=== PATIENT | male | born 1990 | race Caucasian/White ===

== ENCOUNTER 2021-01-07 12:50 | Emergency (ER) | payer OTHER, SELFPAY ==
[2021-01-07 13:03] VITALS: BP 153/89; PULSE 85; RESP 16; TEMP 36.2; O2SAT 99
--- NOTE | 2021-01-07 13:56 | ED.GENADULT ---
HPI - General Adult General Chief complaint: Unspecified Stated complaint: sore throat 4 days Time Seen by Provider: 01/07/21 13:53 History of Present Illness HPI narrative: Patient is a 30-year-old male otherwise healthy who comes into the ED today complaining of throat irritation. No pain with swallowing. No voice changes. More so has pain with certain movements. For the last 2 days he has been having body aches and feeling fatigued and somewhat nauseous. No vomiting. No sinus congestion, cough. No one else in his household is feeling ill. Took some ibuprofen this morning. Related Data Allergies Allergy/AdvReac Type Severity Reaction Status Date / Time No Known Allergies Allergy Unknown Verified 01/07/21 13:07 Review of Systems Constitutional: Constitutional: Reports as per HPI, Denies fever(s), Denies night sweats and Denies weakness ENT: Comments: See HPI Cardiovascular: Cardiovascular: Denies chest pain, Denies edema, Denies leg edema, Denies dyspnea and Denies orthopnea Respiratory: Respiratory: Denies cough and Denies dyspnea Gastrointestinal: Gastrointestinal: Denies abdominal pain, Denies constipation, Denies diarrhea, Denies nausea and Denies vomiting Musculoskeletal: Musculoskeletal: Denies abnormal gait, Denies back pain, Denies numbness and Denies tingling Neurologic: Denies Abnormal speech present, Denies abnormal gait, Denies numbness, Denies tingling and Denies weakness Psychiatric: Psychiatric: Denies homicidal ideation and Denies suicidal ideation [facility] Social History Social History (Updated 09/25/19 @ 11:03 by Cheryl Aguilar) Smoking status: Never smoker Gender identity (if verbalized by the patient): Male Exam Const: General: cooperative, healthy appearing, comfortable, no acute distress, well developed, alert, awake and Physically active Orientation/consciousness: patient oriented x3 Other: Well-appearing, pleasant, no distress HENMT: Head: normal to inspection, normocephalic and atraumatic Ears: external ears normal General nose exam: Normal external nose present Mouth: Yes Normal oral and palatal mucosa present Teeth and gingiva: dentition normal and gingiva normal Throat: posterior oropharynx normal, tonsils normal and uvula midline Other: Oropharynx is completely normal. No cervical adenopathy. Eyes: Pupils: Equal, round and reactive pupils present EOM: EOMs intact bilaterally Neck: Neck: normal visual inspection Chest: Chest palpation & inspection: normal inspection of the chest and no tenderness Resp: Effort & Inspection: normal respiratory effort and able to speak in complete sentences Auscultation: clear to auscultation bilaterally Cardio: Rate: regular rate Rhythm: regular rhythm GI: Inspection: normal to inspection GI Palp: No abdominal tenderness : General: Yes no CVA tenderness Back/Spine/Pelvis: Back: no CVA tenderness Skin: General skin exam: normal color and no rashes or lesions noted Lesions: no lesions Neuro: General: patient oriented x3, no focal motor deficits and CN's II-XI intact bilaterally Cranial nerves: Yes Equal, round and reactive pupils present Speech: No Abnormal speech present Extrem: General: normal to inspection and full ROM Psych: Appearance: grossly normal and well kempt Mental Status: mental status grossly normal Speech and movement: Normal speech and movement present Affect: normal affect Thought process: Normal thought process present Course Course Emergency Course: Discussed with patient that symptoms are viral in nature. Educated on plan for rest and Tylenol and ibuprofen as needed and return to ED with any new or worsening symptoms. Will swab for the COVID-19 virus. Vital Signs Vital signs: Vital Signs Temperature 36.2 C L 01/07/21 13:03 Pulse Rate 85 01/07/21 13:03 Respiratory Rate 16 01/07/21 13:03 Blood Pressure 153/89 H 01/07/21 13:03 Pulse Oximetry 99 01/07/21 13:03 Temperature 36.2 C L
[2021-01-07 15:18] VITALS: BP 133/75; PULSE 72; RESP 18; O2SAT 99
[2021-01-07 21:23] LABS: SARS-CoV-2 RNA PCR Negative
== END 2021-01-07 15:18 | disposition home or self-care (01) ==
PROVIDERS: Physician Assistant Medical; Emergency Provider Emergency Medicine
DX: B34.9 Viral infection, unspecified (principal); J02.9 Acute pharyngitis, unspecified; Z20.822 Contact with and (suspected) exposure to COVID-19
CPT/HCPCS: 87081; 87426; 87880; 99283; C9803; U0003; U0005

== ENCOUNTER 2021-06-23 15:31 | Emergency (ER) | payer OTHER, SELFPAY ==
[2021-06-23 15:41] VITALS: BP 122/65; PULSE 63; RESP 16; TEMP 37; O2SAT 100
[2021-06-23 17:29] VITALS: BP 119/60; PULSE 70; RESP 18; O2SAT 100
--- NOTE | 2021-06-23 17:46 | ED.GENADULT ---
HPI - General Adult General Chief complaint: Urogenital-Male Stated complaint: Chaffing groin area Time Seen by Provider: 06/23/21 17:31 Source: patient Mode of arrival: ambulatory Limitations: no limitations History of Present Illness HPI narrative: Patient presents for evaluation of redness and a burning sensation to his scrotum and left inguinal region. He states he used a new aponte product on his scrotum about a month ago and has experienced redness and burning to the scrotum since that time. Yesterday he noted some red dots to the left inguinal region. He is sexually active with one female partner on a regular basis, typically receiving oral intercourse. He recently had protected sexual intercourse with another female. Patient denies any urinary symptoms or urethral discharge. He was concerned that these red dots might be herpes. This prompted him to come to the ER for further evaluation. Denies any testicular pain, masses, enlargement. No additional complaints or concerns. Related Data Allergies Allergy/AdvReac Type Severity Reaction Status Date / Time No Known Allergies Allergy Unknown Verified 06/23/21 17:31 Review of Systems Review of Systems: CONSTITUTIONAL: Denies fever, chills, or sweats. EYES: Denies visual changes, redness, or discharge. ENT: Denies rhinorrhea, congestion, sore throat, or otalgia. CARDIOVASCULAR: Denies chest pain, palpitations, or edema. RESPIRATORY: Denies cough or dyspnea. GASTROINTESTINAL: Denies abdominal pain, nausea, vomiting, or diarrhea. GENITOURINARY: Denies dysuria or hematuria. SKIN: Reports redness with a burning sensation to the scrotum left inguinal region MUSCULOSKELETAL: Denies back pain, joint pain, or myalgia. NEUROLOGIC: Denies headache, numbness, dizziness, or weakness. PSYCHIATRIC: Denies anxiety or depression. [facility] Past Medical History Medical History No pertinent past medical history Surgical History Surgical History (Updated 06/23/21 @ 17:57 by Tyron Haji, GENA, DEDRICK) No pertinent past surgical history Family History Family History Mother No pertinent past medical history Social History Social History Smoking status: Never smoker Alcohol intake: never Substance use: current Substance use type: marijuana Living arrangements: with family Gender identity (if verbalized by the patient): Male Sexual Orientation (if Verbalized by the Patient): Straight or Heterosexual Spiritual care concerns: No Exam Narrative: GENERAL: Well-appearing, well-nourished, and in no acute distress. HEAD: Normocephalic, atraumatic. EYES: PERRLA and EOMI. ENT: Nares clear, no rhinorrhea or epistaxis. Mucous membranes moist. Oropharynx without tonsillar hypertrophy exudate or other lesions. Bilateral TMs pearly rueda nonbulging NECK: Supple. No adenopathy or masses. No carotid bruits or JVD CHEST: Clear to auscultation. No respiratory distress. No wheezes rales or rhonchi HEART: Regular rate and rhythm. No murmur heard. Normal peripheral pulses. GENITAL: No penile lesions. No testicular masses, enlargement or tenderness. There is erythema noted to left side of the scrotum. There is erythema noted surrounding the hair follicles to the left inguinal region ABDOMEN: Soft, nontender, nondistended, normal active bowel sounds. EXTREMITIES: Normal range of motion. No edema. SKIN: Warm, dry, no rash. NEURO: No focal deficits. Alert and oriented x3. PSYCH: Normal mood and affect. Course Course Emergency Course: This is a 30-year-old male who presented with complaints of burning and redness to the left inguinal region and scrotum. He recently used a aponte product and experienced a chemical burn. It appears that in additional to this he now has folliculitis. This could be a bacterial o
[2021-06-23 18:27] LABS: Add Urine Microscopic? YES; Appearance Urine Clear (Clear); Bacteria Urine Trace /hpf; Bilirubin Urine Negative (Negative); Blood Urine Negative (Negative); Color Urine Straw (Yellow); Glucose Urine UA Negative (Negative); Ketones Urine Trace mg/dL (Negative); Leukocyte Esterase Ur Negative LEU/UL (Negative); Mucus Urine Rare /lpf; Nitrate Urine Negative (Negative); Protein Urine Negative (Negative); RBC Urine 0-2 /hpf (0-2); Specific Grav Ur 1.012 (1.001-1.035); Urobilinogen Urine Negative mg/dL (<2.0); WBC Urine 0-3 /hpf
== END 2021-06-23 18:12 | disposition home or self-care (01) ==
PROVIDERS: Emergency Provider Nurse Practitioner
DX: T65.891A Toxic effect of other specified substances, accidental (unintentional), initial encounter (principal); T21.46XA Corrosion of unspecified degree of male genital region, initial encounter; T32.0 Corrosions involving less than 10% of body surface; L73.9 Follicular disorder, unspecified
CPT/HCPCS: 81001; 87491; 87591; 87661; 99283

== ENCOUNTER 2022-04-28 09:19 | Emergency (ER) | payer OTHER, SELFPAY ==
--- NOTE | 2022-04-28 09:43 | ED.BACK ---
HPI - Back Pain/Injury General Chief Complaint: Back Pain/Injury Stated Complaint: back issues, neck pains Time Seen by Provider: 04/28/22 09:29 History of Present Illness HPI Narrative: 31-year-old male presents the emergency room for evaluation of gradual onset of neck pain for 3 days. Patient denies any known injury or trauma. States that he was at work over the weekend and was frequently reaching for items and then placing them over his head. States neck pain is worse with rotation to the right. Has been taking ibuprofen with little improvement of symptoms. Related Data Home Medications Medication Instructions Recorded Confirmed No Home Medications 04/28/22 04/28/22 Allergies Allergy/AdvReac Type Severity Reaction Status Date / Time No Known Allergies Allergy Unknown Verified 04/28/22 09:50 Review of Systems Review of Systems: CONSTITUTIONAL: Denies fever, chills, or sweats. EYES: Denies visual changes, redness, or discharge. ENT: Denies rhinorrhea, congestion, sore throat, or otalgia. CARDIOVASCULAR: Denies chest pain, palpitations, or edema. RESPIRATORY: Denies cough or dyspnea. GASTROINTESTINAL: Denies abdominal pain, nausea, vomiting, or diarrhea. GENITOURINARY: Denies dysuria or hematuria. SKIN: Denies rash or itching. MUSCULOSKELETAL: Reports neck pain NEUROLOGIC: Denies headache, numbness, dizziness, or weakness. PSYCHIATRIC: Denies anxiety or depression. PMFSH Past Medical History Medical History No pertinent past medical history Surgical History Surgical History No pertinent past surgical history Family History Family History Mother No pertinent past medical history Social History Social History Smoking status: Never smoker Alcohol intake: never Substance use: current Substance use type: marijuana Gender identity (if verbalized by the patient): Male Sexual Orientation (if Verbalized by the Patient): Straight or Heterosexual Spiritual care concerns: No Exam Narrative: GENERAL: Well-appearing, well-nourished, no physical limitations, and in no acute distress. HEAD: Normocephalic, atraumatic. EYES: Conjunctivae normal, PERRLA and EOMI. NECK: Supple. No midline tenderness. Full range of motion, pain with right rotation and right lateral bend, tenderness over the left trapezius muscle. CHEST: Clear to auscultation. No respiratory distress. No wheezes rales or rhonchi. No tenderness. HEART: Regular rate and rhythm. No murmur heard. Normal peripheral pulses. EXTREMITIES: Normal range of motion. No edema. No clubbing or cyanosis SKIN: Warm, dry, no rash. No noted wounds NEURO: No focal deficits. Alert and oriented x3. MAEW. CN's II-XI intact bilaterally, normal gait PSYCH: Cooperative. Normal mood and affect. Course Vital Signs Vital signs: Vital Signs Temperature 36.1 C L 04/28/22 09:46 Pulse Rate 58 L 04/28/22 09:46 Respiratory Rate 16 04/28/22 09:46 Blood Pressure 125/74 04/28/22 09:46 Pulse Oximetry 99 04/28/22 09:46 Oxygen Delivery Room Air 04/28/22 09:46 Temperature 36.1 C L 04/28/22 09:46 Pulse Rate 58 L 04/28/22 09:46 Respiratory Rate 16 04/28/22 09:46 Blood Pressure 125/74 04/28/22 09:46 Pulse Oximetry 99 04/28/22 09:46 Oxygen Delivery Room Air 04/28/22 09:46 Discharge Plan Discharge Clinical Impression: Acute cervical myofascial strain Patient Disposition: Home, Self-Care Condition: Stable Instructions: Antibiotic Form, Cervical Strain (DC) Prescriptions: No Action No Home Medications Follow-up/Referrals: PHYSICIAN,FISH GRADER [Primary Care Provider] - Time of Disposition: :46
[2022-04-28 09:46] VITALS: BP 125/74; PULSE 58; RESP 16; TEMP 36.1; O2SAT 99
== END 2022-04-28 10:57 | disposition home or self-care (01) ==
PROVIDERS: Emergency Provider Nurse Practitioner Family
DX: S16.1XXA Strain of muscle, fascia and tendon at neck level, initial encounter (principal); X58.XXXA Exposure to other specified factors, initial encounter
CPT/HCPCS: 99281

== ENCOUNTER 2023-11-18 10:46 | Emergency (ER) | payer OTHER, SELFPAY ==
--- NOTE | ~2023-11-18 | XR_ITS ---
XR chest 2V DATE: 11/18/2023 12:17 INDICATION: Left rib pain for 5 days TECHNIQUE: PA and lateral chest COMPARISON: None FINDINGS: Bilateral hyperinflation. No pulmonary infiltrate or consolidation, pleural effusion or pul monary vascular congestion or pneumothorax is detected. Included skeletal structures are unremarkable. IMPRESSION: Bilateral hyperinflation Reviewed, dictated and finalized at location B. [facility]ER IMPRESSION: Bilateral hyperinflation
[2023-11-18 11:14] VITALS: BP 136/78; PULSE 72; RESP 18; TEMP 36.3; O2SAT 100
--- NOTE | 2023-11-18 12:11 | ED.EXTPRO ---
HPI - Extremity Problem General Chief complaint: Extremity Problem,Nontraumatic Stated complaint: Blood clot in arm/rib pain Time Seen by Provider: 11/18/23 12:06 History of Present Illness HPI Narrative: Patient is a 32-year-old male with no past medical history here today with multiple complaints including left rib pain and an area of swelling in the left arm. Patient notes that about 5 days ago he was hugged by his large friend. He notes immediate pain to his left ribs afterwards. He has taken occasional ibuprofen without relief but does not typically like to take medications. Additionally yesterday he noted a small lump to his forearm and was concerned that this could be a blood clot. He notes that it is over the dorsal aspect of his forearm, small in size, with some faint overlying erythema. Patient denies any history of blood clot. Denies swelling of the arm, pain in the arm. He denies known trauma to this on. Related Data Allergies Allergy/AdvReac Type Severity Reaction Status Date / Time No Known Allergies Allergy Unknown Verified 11/18/23 12:01 Review of Systems Review of Systems: All systems reviewed & are unremarkable except as noted in HPI and below PMFSH Past Medical History Medical History No pertinent past medical history Surgical History Surgical History No pertinent past surgical history Family History Family History (Updated 12/30/22 @ 21:38 by Stephanie York MD) Mother No pertinent past medical history Father , suicide, overdose No problems noted. Social History Social History Social History: Single Smoking packs per day: 1 Smoking cigarettes per day: 20.0 Years smoked: 2 Smoking pack-years: 2.00 Smoking status: Never smoker Tobacco type: cigarettes Second hand tobacco smoke exposure: No Smoking end date: 10/03/19 Alcohol intake: never Substance use: current Substance use type: marijuana Last use: Pt smokes marijuana only when he is at home. Lack of Transportation: No Lack of Food: Never True Current Housing: I Have Housing Concerned About Future Housing: No Difficulty Paying Gas/Electric Bills: No Difficulty Paying for Meds: No Currently Unemployed: No Education: Decline to Answer Difficulty w/ Childcare or Family Care: No Living arrangements: with family Occupation/Education: occupation Gender identity (if verbalized by the patient): Male Sexual Orientation (if Verbalized by the Patient): Straight or Heterosexual Spiritual care concerns: No Exam Narrative: GENERAL: Well-appearing, well-nourished, and in no acute distress. HEAD: Normocephalic, atraumatic. EYES: PERRLA and EOMI. ENT: Nares clear. Mucous membranes moist. NECK: Supple. CHEST: Clear to auscultation. Left anterior chest wall tenderness around ribs 4-5, no crepitus appreciated. No respiratory distress. HEART: Regular rate and rhythm. Normal peripheral pulses. ABDOMEN: Soft, nontender, nondistended. EXTREMITIES: Normal range of motion. No edema. 1cm round, mobile swelling to mid forearm without any arm swelling, numbness, strength changes. SKIN: Warm, dry, no rash. NEURO: No focal deficits. Alert and oriented x3. PSYCH: Normal mood and affect. Course Course Emergency Course: Chart review performed. Patient here for arm and rib symptoms. Triage vitals normal. Last PCP visit in our system was about a year ago. No pertinent medical history at that time. Patient seen evaluated, nontoxic appearing. He does have anterior chest wall tenderness, x-ray negative for fracture. Reviewed by myself, no obvious displaced fracture appreciated on my own review either. Very small mobile round area of induration present on his left forearm, this is not consistent with a DVT. Discu
[2023-11-18] MEDS: LIDOCAINE 5% PATCH 1 PATCH TRANSDERM (13:00)
[2023-11-18] MEDS: IBUPROFEN 600 MG TABLET PO (13:01)
[2023-11-18] MEDS: ACETAMINOPHEN 325 MG TABLET 650 MG PO (13:01)
[2023-11-18 13:04] VITALS: BP 122/68; PULSE 82; RESP 16; O2SAT 99
== END 2023-11-18 13:05 | disposition home or self-care (01) ==
PROVIDERS: Emergency Provider Student in an Organized Health Care Education/Training Program
DX: R07.81 Pleurodynia (principal); F17.210 Nicotine dependence, cigarettes, uncomplicated
CPT/HCPCS: 71046; 99283; A9270

== ENCOUNTER 2024-11-20 13:11 | Emergency (ER) | payer OTHER, SELFPAY ==
--- OUTSIDE RECORDS SUMMARY | 2024-11-20 13:18 | XMS_ITS | Clinical Summary ---
Author Organization [facility] Address [address] [place] [address] Phone Care Team Providers Care Family Law Specialist Name Role Phone Provider, None Primary Care Provider Unavailabl e Allergies No known active allergies Medications naproxen (NAPROSYN) 500 MG Tablet Take 1 Tab by mouth 2 times daily (with meals). 60 Tab 0 02/11/2016 Active LORazepam (ATIVAN) 0.5 MG Tablet Take 1 Tab by mouth every 6 hours as needed for Anxiety. 20 Tab 05/12/2017 Active Social History Tobacco Use Types Packs/Day Years Used Date Smoking Tobacco: Every Day Cigarettes E-Vapor with Nicotine Alcohol Use Standard Drinks/Week Comments Yes 0 (1 standard drink = 0.6 oz pur e alcohol) OCCASIONALLY Sex and Gender Information Value Date Recorded Sex Assigned at Not on file Legal Sex Male 12:17 AM CDT Gender Identity Not on file Sexual Orientation Not on file Last Filed Vital Signs Vital Sign Reading Time Taken Comments Blood Pressure 111/76 05/12/2017 3:51 PM CDT Pulse 68 05/12/2017 3:51 PM CDT Temperature 36.3 C (97.4 F) 05/12/2017 3:51 PM CDT Respiratory Rate 16 05/12/2017 3:51 PM CDT Oxygen Saturation 99% 05/12/2017 3:51 PM CDT Inhaled Oxygen Concentration - - Weight 54.4 kg (120 lb) 05/12/2017 3:51 PM CDT Height 170.2 cm (5' 7 ) 05/12/2017 3:51 PM CDT Body Mass Index 18.79 05/12/2017 3:51 PM CDT Plan of Treatment Not on file Care Teams Family Law Specialist Relationship Specialty Start Date End Date Provider, None UNIQUE PCP - General 02/11/16
--- OUTSIDE RECORDS SUMMARY | 2024-11-20 13:18 | XMS_ITS | Referral Summary ---
Author Organization [facility] Address [address] [place] [address] Care Team Providers Care Fraternity Adviser Name Role Phone No, Physician Primary Care Provider [phone] Allergies No known active allergies Medications mupirocin (BACTROBAN) 2 % cream Apply topically 3 (three) times a day. 15 g 8 Active traMADoL (ULTRAM) 50 mg tablet Take 1 tablet (50 mg total) by mouth every 6 (six) hours for 6 days 24 tablet 4 Active Immunizations Immunization Administration Dates Next Due Tdap 08/06/2024 Social History Tobacco Use Types Packs/Day Years Used Date Smoking Tobacco: Every Day Smokeless Tobacco: Never Personal Safety Answer Date Recorded Have you ever been in or are you currently in a harmful physical or emotional relationship or is someone making you feel afraid or unsafe? Denies 08/06/2024 Sex and Gender Information Value Date Recorded Sex Assigned at Not on file Legal Sex Male 5:48 PM BIOLOGICAL ENGINEER Gender Identity Not on file Sexual Orientation Not on file Last Filed Vital Signs Vital Sign Reading Time Taken Comments Blood Pressure 113/77 08/06/2024 12:00 PM BIOLOGICAL ENGINEER Pulse 53 08/06/2024 12:00 PM BIOLOGICAL ENGINEER Temperature 36.9 C (98.4 F) 08/06/2024 8:07 AM BIOLOGICAL ENGINEER Respiratory Rate 16 08/06/2024 10:47 AM BIOLOGICAL ENGINEER Oxygen Saturation 99% 08/06/2024 10:47 AM BIOLOGICAL ENGINEER Inhaled Oxygen Concentration - - Weight 59 kg (130 lb) 05/16/2024 4:16 PM CDT Height 170.2 cm (5' 7 ) 08/06/2024 8:07 AM BIOLOGICAL ENGINEER Body Mass Index 20.36 05/16/2024 4:16 PM CDT Plan of Treatment Not on file [place] [id number] [facility] CHOICE [employer] H[facility]/PPO Address: [address] [address] [place] [address] [employer] Care Teams Fraternity Adviser Relationship Specialty Start Date End Date No, Physician PCP - General 08/06/24
--- OUTSIDE RECORDS SUMMARY | 2024-11-20 13:18 | XMS_ITS | Clinical Summary ---
Author Organization [facility] Address [address] [place] [address] Care Team Providers Care Apparel Pattern Maker Name Role Phone Unavailable Primary Care Provider Unavailabl e Source Comments [facility],non-owned Affiliates and Associated Physician Practices is amultiple site organization consisting of ambulatory clinics and hospital sitesin [place], [place], [place] and [place]. This disclosure is being madepursuant to the Care Everywhere program and may not contain all information available regarding this patient. Last updated 18.[facility] [employer] Social History Tobacco Use Types Packs/Day Years Used Date Smoking Tobacco: Never Assessed Sex and Gender Information Value Date Recorded Sex Assigned at Not on file Gender Identity Not on file Sexual Orientation Not on file Plan of Treatment Health Maintenance Due Date Last Done Comments HIV SCREENING 12/28/2006 HEPATITIS C SCREENING 12/24/2009 DTAP/TDAP/TD VACCINES (1 - Tdap) 12/28/2010 HEPATITIS B VACCINE (1 of 3 - 19+ 3-dose series) 12/28/2010 COVID-19 VACCINE ( - 2023-2 5 season) 2024 INFLUENZA VACCINE (#1) 2024 DEPRESSION SCREENING 10/03/2024 ZOSTER VACCINE (1 of 2) 12/28/2041 HIB VACCINE Aged Out No longer eligi ble based on patient's age to complete this topic HPV VACCINE Aged Out No longer eligi ble based on patient's age to complete this topic MENINGOCOCCAL (Group B) VACCINE Aged Out No longer eligible based on patient's age to complete this topic MENINGOCOCCAL VACCINE Aged Out No art kodi eligible based on patient's age to complete this topic PNEUMOCOCCAL VACCINE Aged Out No long er eligible based on patient's age to complete this topic
--- OUTSIDE RECORDS SUMMARY | 2024-11-20 13:18 | XMS_ITS | Patient Health Summary ---
Author Organization [facility] Address [address] [place] [address] Care Team Providers Care Diffusion Furnace Operator Name Role Phone Unavailable Primary Care Provider Unavailabl e Note from [facility],non-owned Affiliates and Associated Physician Practices is amultiple site organization consisting of ambulatory clinics and hospital sitesin [place], [place], [place] and [place]. This disclosure is being madepursuant to the Care Everywhere program and may not contain all information available regarding this patient. Last updated 18.[facility] Social History Tobacco Use Types Packs/Day Years Used Date Smoking Tobacco: Never Assessed Sex and Gender Information Value Date Recorded Sex Assigned at Not on file Gender Identity Not on file Sexual Orientation Not on file
--- OUTSIDE RECORDS SUMMARY | 2024-11-20 13:18 | XMS_ITS | Clinical Summary ---
Author Organization [facility] Address [address] [place] [address] Care Team Providers Care Oval Or Circular Glass Cutter Name Role Phone No, Physician Primary Care Provider [phone] Allergies No known active allergies Medications mupirocin [...] on file Legal Sex Male 5:48 PM INSTRUMENTATION AND CONTROLS DESIGNER Gender Identity Not on file Sexual Orientation Not on file Obstetrics History Last Filed Vital Signs Vital Sign Reading Time Taken Comments Blood Pressure 113/77 08/06/2024 12:00 PM INSTRUMENTATION AND CONTROLS DESIGNER Pulse 53 08/06/2024 12:00 PM INSTRUMENTATION AND CONTROLS DESIGNER Temperature 36.9 C (98.4 F) 08/06/2024 8:07 AM INSTRUMENTATION AND CONTROLS DESIGNER Respiratory Rate 16 08/06/2024 10:47 AM INSTRUMENTATION AND CONTROLS DESIGNER Oxygen Saturation 99% 08/06/2024 10:47 AM INSTRUMENTATION AND CONTROLS DESIGNER Inhaled Oxygen Concentration - - Weight 59 kg (130 lb) 05/16/2024 4:16 PM CDT Height 170.2 cm (5' 7 ) 08/06/2024 8:07 AM INSTRUMENTATION AND CONTROLS DESIGNER Body Mass Index 20.36 05/16/2024 4:16 PM CDT Plan of Treatment Health Maintenance Due Date Last Done Comments Depression Screening 1991 Hepatitis C Screening 1991 Pneumococcal vaccine <65 (1 of 2 - PCV) 12/28/1997 Varicella Vaccines (1 of 2 - 13+ 2-dose series) 12/28/2004 Regular Well Visit/Exam 18-64 12/28/2009 Influenza Vaccine (#1) 2024 DTaP/Tdap/Td Vaccine (2 - Td or Tdap) 08/06/2034 08/06/2024 HPV Vaccines Aged Out No longer eligi ble based on patient's age to complete this topic Insurance [employer] [facility] CHOICE PLUS [employer] Care Teams Oval Or Circular Glass Cutter Relationship Specialty Start Date End Date No, Physician PCP - General 08/06/24
--- OUTSIDE RECORDS SUMMARY | 2024-11-20 13:18 | XMS_ITS | Continuity of Care Document ---
Author Organization [facility] Address [address] [place] [address] Phone Care Team Providers Care Supervisor Inspection Department Name Role Phone Andino PAYALDeepak Unavailable Unavailable Procedures Procedure Date Office/outpatient visit,[facility], [facility] 2004 X-ray exam of foot, complete Office consultation, [facility] Advance Directives Directive Yes / No Effective Date File Name No Information Encounters Encounter Description Practice Location Reason(s) For Visit Diagnoses Date Provider Providers Copied on Encounter Office/outpat ient visit,est, [facility], [address] [place] [address], [id number], tel:[phone] [place] [facility] No Information 7-200 5 Sina Sotelo. [address] [place], [place], [id number] , . tel:[phone] [facility], [address] [place] [address], [id number], tel:[phone] [place] [facility] No Information 1-200 5 Sina Sotelo. [address] [place] [address], [id number] , . tel:[phone] Office consultation, [facility], [address] [place] [address], [id number], tel:[phone] [facility] No Information 2-200 5 Bhavesh Miller. [address] [place], [place], [id number] , . tel:[phone] Family History Family Member Type Diagnosis Age At Onset No Information Payers Payer name Insurance type Covered alliance party ID Authorandrea jasmyn(s) IDPA [id number] Social History Type Description Quantity Date Captured Comments Sex Male Smoking Status No Information Chief Complaint And Reason For Visit No Information Reason For Referral Reason For Referral No Information History Of Present Illness Encounter Date Complaint History Of Prese nt Illness No Information Functional Status Date Functional Assessmen t No Information Instructions Date Instruction Additional Infor mation No Information Assessments Type Assessment Date No Information Patient Care Teams Name Effective Dates (start - stop) Status Members No Information
--- OUTSIDE RECORDS SUMMARY | 2024-11-20 13:18 | XMS_ITS | Referral Summary ---
Author Organization [facility] Address [address] [place] [address] Care Team Providers Care Tech Brazer Tester Name Role Phone Unavailable Primary Care Provider Unavailabl e Source Comments [facility],non-owned Affiliates and Associated Physician Practices is amultiple site organization consisting of ambulatory clinics and hospital sitesin [place], [place], [place] and [place]. This disclosure is being madepursuant to the Care Everywhere program and may not contain all information available regarding this patient. Last updated 18.[facility] Social History Tobacco Use Types Packs/Day Years Used Date Smoking Tobacco: Never Assessed Sex and Gender Information Value Date Recorded Sex Assigned at Not on file Gender Identity Not on file Sexual Orientation Not on file Plan of Treatment Not on file
[2024-11-20 13:19] VITALS: BP 122/82; PULSE 68; RESP 18; TEMP 36.4; O2SAT 100
[2024-11-20 13:26] VITALS: RESP 18
--- NOTE | 2024-11-20 13:36 | ED.GENADULT ---
HPI - General Adult General Chief complaint: Unspecified Stated complaint: throat swelling Time Seen by Provider: 11/20/24 13:31 Source: patient Mode of arrival: ambulatory Limitations: no limitations History of Present Illness HPI narrative: 33-year-old otherwise healthy here with the complaints of something might of stuck in his throat for past 7 weeks. Patient states he ate something hard and he thinks it must be stuck in his walking cords. He has no difficulty in swallowing, cough or shortness of breath or chest pain. He states that he has hard time singing. Onset (ago): week(s) (7) Severity: mild Quality: aching Pain Consistency: constant Relieving factors: none Exacerbating factors: none Associated symptoms: denies other symptoms Related Data Allergies Allergy/AdvReac Type Severity Reaction Status Date / Time No Known Allergies Allergy Unknown Verified 11/18/23 12:01 Review of Systems Review of Systems: All systems reviewed & are unremarkable except as noted in HPI and below Constitutional: Constitutional: Reports no additional constitutional complaints Eyes: Eyes: Reports no additional eye complaints ENT: Reports as per HPI Cardiovascular: Cardiovascular: Reports no additional cardiovascular complaints Respiratory: Respiratory: Reports no additional respiratory complaints Musculoskeletal: Musculoskeletal: Reports no additional musculoskeletal complaints Integumentary/Breasts: Skin/Breast: Reports system reviewed and no additional complaints, except as docu PMFSH Past Medical History Medical History No pertinent past medical history Surgical History Surgical History No pertinent past surgical history Family History Family History (Updated 12/30/22 @ 21:38 by Stephanie YorkMD) Mother No pertinent past medical history Father , suicide, overdose No problems noted. Social History Social History Social History: Single Smoking packs per day: 1 Smoking cigarettes per day: 20.0 Years smoked: 2 Smoking pack-years: 2.00 Smoking status: Never smoker Tobacco type: cigarettes Second hand tobacco smoke exposure: No Smoking end date: 10/03/19 Alcohol intake: never Substance use: current Substance use type: marijuana Last use: Pt smokes marijuana only when he is at home. Lack of Transportation: No Lack of Food: Never True Current Housing: I Have Housing Concerned About Future Housing: No Difficulty Paying Gas/Electric Bills: No Difficulty Paying for Meds: No Currently Unemployed: No Education: Decline to Answer Difficulty w/ Childcare or Family Care: No Living arrangements: with family Occupation/Education: occupation Gender identity (if verbalized by the patient): Male Sexual Orientation (if Verbalized by the Patient): Straight or Heterosexual Spiritual care concerns: No Exam Narrative: GENERAL: Well-appearing, well-nourished, and in no acute distress. HEAD: Normocephalic, atraumatic. EYES: PERRLA and EOMI. ENT: Nares clear, no rhinorrhea or epistaxis. Mucous membranes moist. Throat is clear his voice is normal NECK: Supple. CHEST: Clear to auscultation. No respiratory distress. HEART: Regular rate and rhythm. No murmur heard. Normal peripheral pulses. EXTREMITIES: Normal range of motion. No edema. SKIN: Warm, dry, no rash. NEURO: No focal deficits. Alert and oriented x3. PSYCH: Normal mood and affect. Course Course Emergency Course: Inform patient that he needs to see ENT on outpatient basis for his focus Vital Signs Vital signs: Vital Signs Temperature 36.4 C 11/20/24 13:19 Pulse Rate 11/20/24 13:19 Respiratory Rate 11/20/24 13:19 Blood Pressure 122/82 11/20/24 13:19 Pulse Oximetry 100 11/20/24 13:19 Oxygen Delivery Room Air 11/20/24 13:19 Temperature 36.4 C 11/20/24 13:19 Pulse Rate 11/20/24 13:19 Respiratory Rate 11/20/24 13:26 Blood Pressure 122/82 11/20/24 13:19 Pulse Oximetry 100 11/20/24 13:19 Oxygen Delivery Room Air 11/20/24 13:19 Medical Decision Making Vital Signs Vital Signs: Vital Signs Temperature 36.4 C 11/20/24 13:19 Pulse Rate 68 11/20/24 13:19 Respiratory Rate 18 11/20/24 13:19 Blood Pressure 122/82 11/20/24 13:19 Pulse Oximetry 100 11/20/24 13:19 Oxygen Delivery Room Air 11/20/24 13:19 Temperature 36.4 C 11/20/24 13:19 Pulse Rate 68 11/20/24 13:19 Respiratory Rate 18 11/20/24 13:26 Blood Pressure 122/82 11/20/24 13:19 Pulse Oximetry 100 11/20/24 13:19 Oxygen Delivery Room Air 11/20/24 13:19 Discharge Plan Discharge Clinical Impression: Throat discomfort Patient Disposition: Home, Self-Care Condition: Stable Instructions: Antibiotic Form, Pharyngitis (ED), Foreign Body in the Pharynx (ED) Patient Language: Salvadorean Prescriptions: No Action lidocaine [Lidoderm] 5 % adhesive patch,medicated 1 patch topical DAILY Qty: 10 0RF Rx Instructions: leave on most painful area for up to 12 hrs ibuprofen 600 mg tablet 600 mg PO Q6H PRN (Reason: pain) Qty: 20 0RF Follow-up/Referrals: Carlos Gillis MD [Physician] - PHYSICIAN,TRAVEL COUNSELOR [Non-Staff] - Time of Disposition: 13:44
--- OUTSIDE RECORDS SUMMARY | 2024-11-20 13:39 | XMS_ITS | Clinical Summary ---
Author Organization [facility] Address [address] [place] [address] Care Team Providers Care Fingernail Sculptor Name Role Phone Unavailable Primary Care Provider Unavailabl e Source Comments [facility],non-owned Affiliates and Associated Physician Practices is amultiple site organization consisting of ambulatory clinics and hospital sitesin [place], [place], [place] and [place]. This disclosure is being madepursuant to the Care Everywhere program and may not contain all information available regarding this patient. Last updated 18.[facility] [employer] Social History Tobacco Use Types Packs/Day Years [...]
--- OUTSIDE RECORDS SUMMARY | 2024-11-20 13:39 | XMS_ITS | Continuity of Care Document ---
Author Organization [facility] Address [address] [place] [address] Phone Care Team Providers Care Driving Instructor Name Role Phone Andino PAYALDeepak Unavailable Unavailable Procedures Procedure Date Office/outpatient visit,[facility], [facility] 2004 X-ray exam of foot, complete Office consultation, [facility] Advance Directives Directive Yes / No Effective Date File Name No Information Encounters Encounter Description Practice Location Reason(s) For Visit Diagnoses Date Provider Providers Copied on Encounter Office/outpat ient visit,est, [facility], [address] [place] [address], [id number], tel:[phone] [place] [facility] No Information 7-200 5 Sina Sotelo. [address] [place], [place], [id number] , . tel:[phone] [facility], [address] [place] [address], [id number], tel:[phone] [place] [facility] No Information 1-200 5 Sina Sotelo. [address] [place] [address], [id number] , . tel:[phone] Office consultation, [facility], [address] [place] [address], [id number], tel:[phone] [facility] No Information 2-200 5 Bhavesh Miller. [address] [place], [place], [id number] , . tel:[phone] Family History Family Member Type Diagnosis Age At Onset No Information Payers Payer name Insurance type Covered green party ID Authorandrea jasmyn(s) IDPA [id number] Social History Type Description Quantity Date Captured [...]
--- OUTSIDE RECORDS SUMMARY | 2024-11-20 13:39 | XMS_ITS | Referral Summary ---
Author Organization [facility] Address [address] [place] [address] Care Team Providers Care Cloth Mercerizer Operator Name Role Phone No, Physician Primary Care Provider [phone] Allergies No known active allergies Medications mupirocin [...] on file Legal Sex Male 5:48 PM SAMPLE COLLECTOR Gender Identity Not on file Sexual Orientation Not on file Last Filed Vital Signs Vital Sign Reading Time Taken Comments Blood Pressure 113/77 08/06/2024 12:00 PM SAMPLE COLLECTOR Pulse 53 08/06/2024 12:00 PM SAMPLE COLLECTOR Temperature 36.9 C (98.4 F) 08/06/2024 8:07 AM SAMPLE COLLECTOR Respiratory Rate 16 08/06/2024 10:47 AM SAMPLE COLLECTOR Oxygen Saturation 99% 08/06/2024 10:47 AM SAMPLE COLLECTOR Inhaled Oxygen Concentration - - Weight 59 kg (130 lb) 05/16/2024 4:16 PM CDT Height 170.2 cm (5' 7 ) 08/06/2024 8:07 AM SAMPLE COLLECTOR Body Mass Index 20.36 05/16/2024 4:16 PM CDT Plan of Treatment Not on file [place] [id number] [facility] CHOICE PLUS [facility] HMO/PPO Address: [address] [address] [place] [address] [employer] Care Teams Cloth Mercerizer Operator Relationship Specialty Start Date End Date No, Physician PCP - General 08/06/24
--- OUTSIDE RECORDS SUMMARY | 2024-11-20 13:39 | XMS_ITS | Clinical Summary ---
Author Organization [facility] Address [address] [place] [address] Phone Care Team Providers Care Judicial Reporter Name Role Phone Provider, None Primary Care [...] of Treatment Not on file Care Teams Judicial Reporter Relationship Specialty Start Date End Date Provider, None UNIQUE PCP - General 02/11/16
--- OUTSIDE RECORDS SUMMARY | 2024-11-20 13:39 | XMS_ITS | Referral Summary ---
Author Organization [facility] Address [address] [place] [address] Care Team Providers Care Stone Trimmer Name Role Phone Unavailable Primary Care Provider Unavailabl e Source Comments [facility],non-owned Affiliates and Associated Physician Practices is amultiple site organization consisting of ambulatory clinics and hospital sitesin [place], [place], [place]. This disclosure is being madepursuant to the Care Everywhere program and may not contain all information available regarding this patient. Last updated 18.[facility] Social History Tobacco Use Types Packs/Day Years Used Date Smoking Tobacco: Never Assessed Sex and Gender Information Value Date Recorded Sex Assigned at Not on file Gender Identity Not on file Sexual Orientation Not on file Plan of Treatment Not on file
--- OUTSIDE RECORDS SUMMARY | 2024-11-20 13:39 | XMS_ITS | Clinical Summary ---
Author Organization [facility] Address [address] [place] [address] Care Team Providers Care Santa'S Helper Name Role Phone No, Physician Primary Care Provider [phone] Allergies No known active allergies Medications mupirocin [...] on file Legal Sex Male 5:48 PM BEESWAX BLEACHER Gender Identity Not on file Sexual Orientation Not on file Obstetrics History Last Filed Vital Signs Vital Sign Reading Time Taken Comments Blood Pressure 113/77 08/06/2024 12:00 PM BEESWAX BLEACHER Pulse 53 08/06/2024 12:00 PM BEESWAX BLEACHER Temperature 36.9 C (98.4 F) 08/06/2024 8:07 AM BEESWAX BLEACHER Respiratory Rate 16 08/06/2024 10:47 AM BEESWAX BLEACHER Oxygen Saturation 99% 08/06/2024 10:47 AM BEESWAX BLEACHER Inhaled Oxygen Concentration - - Weight 59 kg (130 lb) 05/16/2024 4:16 PM CDT Height 170.2 cm (5' 7 ) 08/06/2024 8:07 AM BEESWAX BLEACHER Body Mass Index 20.36 05/16/2024 4:16 PM [...] complete this topic Insurance [employer] [facility] CHOICE PLUS [employer] Care Teams Santa'S Helper Relationship Specialty Start Date End Date No, Physician PCP - General 08/06/24
--- OUTSIDE RECORDS SUMMARY | 2024-11-20 13:39 | XMS_ITS | Patient Health Summary ---
Author Organization [facility] Address [address] [place] [address] Care Team Providers Care Buzzsaw Operator Helper Name Role Phone Unavailable Primary Care Provider Unavailabl e Note from [facility],non-owned Affiliates and Associated Physician Practices is amultiple site organization consisting of ambulatory clinics and hospital sitesin [place], [place], [place] and [place]. This disclosure is being madepursuant to the Care Everywhere program and may not contain all information available regarding this patient. Last updated 18.[facility] Social History Tobacco Use Types Packs/Day Years Used Date Smoking Tobacco: Never Assessed Sex and Gender Information Value Date Recorded Sex Assigned at Not on file Gender Identity Not on file Sexual Orientation Not on file
== END 2024-11-20 13:55 | disposition home or self-care (01) ==
PROVIDERS: Emergency Provider Family Medicine
DX: J02.9 Acute pharyngitis, unspecified (principal)
CPT/HCPCS: 99281